=== PATIENT | female | born 1965 | race Caucasian/White ===

== ENCOUNTER 2017-02-22 16:16 | Emergency (ER) | payer SELFPAY ==
[~2017-02-22] VITALS: Ht 134.6 cm; Wt 64.4 kg
[2017-02-22 16:21] VITALS: BP 126/60; TEMP 99.7
[2017-02-22] MEDS ORDERED: ZITHROMAX 250M250 MG PO (17:54)
[2017-02-22 18:05] VITALS: PULSE 85
== END 2017-02-22 18:06 | disposition home or self-care (01) ==
LOC: COL.ER 16:16
DX: J18.1 Lobar pneumonia, unspecified organism (principal); E11.9 Type 2 diabetes mellitus without complications

== ENCOUNTER → 2017-04-15 | Outpatient (CLI) | payer OTHER ==
[~2017-04-15] MED LIST: ZITHROMAX 250M250 MG PO
== END ==
LOC: MC.RAD 11:00
DX: Z12.31 Encounter for screening mammogram for malignant neoplasm of breast (principal); N64.89 Other specified disorders of breast

== ENCOUNTER → 2017-05-06 | Outpatient (CLI) | payer OTHER | LOC: MC.RAD 08:25 | DX: R92.8 Other abnormal and inconclusive findings on diagnostic imaging of breast (principal); D24.2 Benign neoplasm of left breast ==

== ENCOUNTER → 2023-09-18 | Outpatient (CLI) | payer SELFPAY | LOC: COL.RAD 11:52 | DX: M17.12 Unilateral primary osteoarthritis, left knee (principal) ==